=== PATIENT | male | born 1970 | race Caucasian/White ===

== ENCOUNTER 2023-06-23 20:50 | Emergency (ER) | payer MEDICAID ==
[~2023-06-23] VITALS: Ht 170.2 cm; Wt 83.9 kg
[2023-06-23 21:00] VITALS: BP 210/114; PULSE 80; RESP 16; TEMP 97; O2SAT 99
[2023-06-23] MEDS ORDERED: LIDOCAINE/EPI 2% 1:100000 20 ML VIAL INJ ONE (22:15)
[2023-06-23] MEDS ORDERED: levETIRAcetam 1,000 MG in NACL 0.9% 100 ML IV ONE (22:50)
[2023-06-23] MEDS ORDERED: levETIRAcetam 100 MG/ML VIAL IV ONE ×2 (23:06→23:09)
[2023-06-23 23:13] VITALS: BP 180/98; PULSE 80; RESP 16; TEMP 97; O2SAT 99
== END 2023-06-23 23:13 | disposition short-term general hospital (02) ==
LOC: MED 20:50
DX: S06.5X9A Traumatic subdural hemorrhage with loss of consciousness of unspecified duration, initial encounter (principal); S06.6X9A Traumatic subarachnoid hemorrhage with loss of consciousness of unspecified duration, initial encounter; S01.112A Laceration without foreign body of left eyelid and periocular area, initial encounter; F10.129 Alcohol abuse with intoxication, unspecified; E11.9 Type 2 diabetes mellitus without complications; I10 Essential (primary) hypertension; Y04.2XXA Assault by strike against or bumped into by another person, initial encounter; Y93.89 Activity, other specified; Y92.89 Other specified places as the place of occurrence of the external cause; Y99.8 Other external cause status
CPT/HCPCS: 12013; 70450; 70486; 72125; 90471; 90715; 99291; J1953; J2001